=== PATIENT | male | born 1990 | race African-American/Black ===

== ENCOUNTER 2020-09-26 10:58 | Emergency (ER) | payer OTHER | END 2020-09-26 11:30 | disposition home or self-care (01) | LOC: ERS 10:58 | DX: R36.9 Urethral discharge, unspecified (principal) | CPT/HCPCS: 99281 ==

== ENCOUNTER 2023-10-12 08:13 | Emergency (ER) | payer SELFPAY ==
[2023-10-12] MEDS ORDERED: Acetaminophen 500 MG TAB ONE (08:52)
[2023-10-12] MEDS ORDERED: Dexamethasone 10 MG/ML VIAL ONE (08:52)
== END 2023-10-12 09:22 | disposition home or self-care (01) ==
LOC: ERS 08:13
DX: M25.511 Pain in right shoulder (principal)
CPT/HCPCS: 96372; 99283; J1100